=== PATIENT | male | born 1945 | race Caucasian/White ===

== ENCOUNTER 2023-02-16 17:51 | Inpatient (IN) | payer MEDICARE, BC ==
[2023-02-16] MEDS ORDERED: VERAPAMIL 2.5 MG/ML 2 ML AMP ONE (18:20)
[2023-02-16] MEDS ORDERED: LIDOCAINE 1% INJ 10MG/ML (20 ML MDV) ONE (18:20)
[2023-02-16] MEDS ORDERED: SODIUM CHLORIDE 0.9% 1,000 ML IV ONE (18:40)
[2023-02-16] MEDS ORDERED: LIDOCAINE 1% INJ 10MG/ML (20 ML MDV) SQ ONE (18:41)
[2023-02-16] MEDS ORDERED: fentaNYL (PF) 50 MCG/ML 2 ML AMP IVP ONE (18:41)
[2023-02-16] MEDS ORDERED: HEPARIN SODIUM 1,000 UN/ML (10ML VL) ONE (18:41)
[2023-02-16] MEDS ORDERED: fentaNYL (PF) 50 MCG/ML 2 ML AMP ONE (18:41)
[2023-02-16] MEDS ORDERED: VERAPAMIL SYRINGE (5 MG/10 ML) INTRAARTER ONE (18:42)
[2023-02-16] MEDS: HEPARIN SODIUM 1,000 UN/ML (10ML VL) IV ONE ×2 (18:44→18:45)
[2023-02-16] MEDS ORDERED: TICAGRELOR 90 MG TAB PO ONE (18:45)
[2023-02-16] MEDS ORDERED: TICAGRELOR 90 MG TAB ONE (18:50)
[2023-02-16] MEDS ORDERED: IOPAMIDOL-370 100ML BTL INJ ONE ×2 (19:07→20:30)
[2023-02-16] MEDS ORDERED: MAG HYDROX/AL HYDROX/SIMETH 30 ML CUP PO PRN (20:26)
[2023-02-16] MEDS ORDERED: ZOLPIDEM 5 MG TAB PO PRN (20:26)
[2023-02-16] MEDS ORDERED: RX INFO: IV CONTRAST WAS GIVEN 1 EACH MISC MISCELLANE PRN (20:26)
[2023-02-16] MEDS ORDERED: NITROGLYCERIN SL TABS 0.4 MG TAB SUBLINGUAL PRN (20:26)
[2023-02-16] MEDS ORDERED: ATROPINE SULFATE 0.1 MG/ML 10ML SYRINGE IV PRN (20:26)
[2023-02-16] MEDS ORDERED: SODIUM CHLORIDE 0.9% 1,000 ML in EMPTY BAG 1 BAG IV SCH (20:30)
--- NOTE | 2023-02-16 20:41 | P.CARDCATH ---
Date of Procedure: 02/16/23 Description of Procedure: Cardiac Catheterization: The patient is a 77-year-old male with a known history of hypertension who presented to [facility] with 10 days of exertional chest discomfort worse today. He was evaluated by Dr. Chandler and was found to have elevation of his troponin and mild ST segment depression anteriorly. Recommendations were made regarding cardiac catheterization, the risks and the complications were discussed with the patient who is in full understanding and agreement. Procedure Description: Patient was brought to lab rep in fasting semi-sedated state after receiving Fentanyl and Benadryl achieiving moderate conscious sedated state. Using Xylocaine Anesthesia and modified Seldinger technique, a 6-Trinidadian sheath was introduced in the right radial artery . Subsequently, selective coronary angiography was performed using a 5-Trinidadian 3.5 bend Shabbir catheter. Multiple views of the coronary artery including hemiaxial views were obtained. The 5-Trinidadian pigtail catheter was used to cross the aortic valve and LVEDP was calculated. PCI: After removing the catheters a 6-Trinidadian EBU 3.75 guiding catheter was introduced and the system and the left main was cannulated. Subsequently a 0.014 BMW J- wire was positioned in the distal LAD. Attempts to advance a 0.014 BMW J-wire into that branch was unsuccessful, that wire was removed and attempt to advanced a whisper J-wire was unsuccessful as well. At that time a 1.5 x 8 mm mini Treck balloon was advanced and inflated distal to the bifurcation. Subsequently the 0.014 whisper J-wire was advanced into the diagonal branch and exchanged through a fine cross microcatheter to a 0.014 BMW J-wire. Subsequently a 2.5 x 12 mm T mery balloon was advanced and 2 inflations at the ostium of the diagonal branch were performed at 8 ivis. After removing the balloon a [employer] [place] eye IVUS was advanced into the LAD and images were obtained. Subsequently a 3.0 x 23 mm Xience rosalba point was advanced and deployed to 16 ivis. After removing the catheter the diagonal wire was withdrawn and readvanced through the stent into the diagonal branch. Repeat IVUS imaging was performed. Subsequently a 3.0 x 20 mm NC Treck balloon was advanced and inflation in the distal segment of the stent was done at 12 ivis and a 4.0 by 8 mm NC Teck in inflations in the proximal segment was done at 10 ivis. Subsequently a 2.75 x 12 mm NC Treck balloon was advanced into the diagonal branch and 2 inflations at 10 ivis at the ostium where done. After removing the balloon repeat IVUS was performed. After removing the catheter the 4.0 x 8 mm NC balloon was readvanced and 2 inflations proximally were performed. Subsequently the wires were removed, images were obtained and revealed stable successful stenting. Following that, catheter and sheath were removed. Hemostasis was obtained with deployment of vascular band . There was no immediate complication. Patient was returned to room in stable condition. Of note, the patient received a total of 5000 units of intravenous heparin as well as intra-arterial verapamil. He received an oral loading dose of Brilinta. He had EKG changes with the inflations but no chest discomfort. His ACT was followed. Findings: Left main: This is a large size vessel, bifurcating into LAD and left circumfle x, left main has 10% plaque LAD: This is a large size vessel, giving rise to 2 diagonal branch. After the first septal smash hand is 99% stenosis involving the takeoff of the second diagonal branch. Cloud 1,1.1., The rest of the vessel has no high-grade stenosis Left circumflex: This is a nondominant vessel, large in caliber, giving rise to 2 obtuse marginal branch, left circumflex has mild intimal disease of 10-20% RCA: This is a large dominant vessel bifurcating distally to PDA and LV. The right coronary artery proximally has 20% plaque, the rest of the vessel has no high-grade stenosis Left Ventriculogram: Not performed Hemodynamics: There was no gradient across the aortic valve, LVEDP was 15-20 mmHg Conclusion: 1. Severe stenosis involving the mid LAD at the takeoff of the second diagonal branch 2. Mild disease in the left circumflex, RCA and left main 3. Right dominance 4. Successful stenting of the mid LAD with reduction of stenosis from 99% to less than 5% with balloon angioplasty of the diagonal branch with KARSTEN-3 flow with IVUS imaging Recommendations: The patient will continue on aspirin and Brilinta without any interruption for one year in addition to aggressive coronary risks modifications, attempting to maintain LDL below 70 mg/dL.. The findings and the recommendations were discussed with the patient and the family and they were in full understanding a nd agreement. Duration of sedation is 92 minutes.
[2023-02-16 20:46] LABS: Glucose,Whole Blood 110 mg/dL (70-110)
[2023-02-16] MEDS ORDERED: lisinopriL 5 MG TAB PO SCH (21:00)
[2023-02-16] MEDS: ATORVASTATIN 80 MG TAB PO SCH (21:18)
[2023-02-16] MEDS: METOPROLOL TARTRATE 25 MG TAB PO SCH (21:18)
[2023-02-16] MEDS: TICAGRELOR 90 MG TAB PO SCH (21:18)
[2023-02-17] MEDS ORDERED: ACETAMINOPHEN TAB 325 MG TAB PO PRN (02:08)
[2023-02-17 06:25] LABS: African American GFR (CKD) >90 (>60 ml/min/1.73 sqM); Anion Gap 8 mmol/L; Blood Urea Nitrogen 20 mg/dL (9-20); Carbon Dioxide 25 mmol/L (22-30); Chloride 106 mmol/L (98-107); Glucose 110 mg/dL (74-99); Non-African American GFR(CKD) 86 (>60 ml/min/1.73 sqM); Potassium 4.2 mmol/L (3.5-5.1); Sodium 139 mmol/L (137-145)
[2023-02-17] MEDS ORDERED: CLOPIDOGREL 75 MG TAB PO SCH (09:00)
[2023-02-17] MEDS: ASPIRIN 81 MG PO SCH (09:48)
[2023-02-17] MEDS: METOPROLOL TARTRATE 25 MG TAB PO SCH ×2 (09:49→21:28)
[2023-02-17] MEDS: TICAGRELOR 90 MG TAB PO SCH ×2 (09:49→21:28)
[2023-02-17] MEDS: lisinopriL 10 MG TAB PO SCH ×2 (09:50→21:28)
[2023-02-17 11:48] VITALS: BMI 26.3
--- NOTE | 2023-02-17 12:21 | P.PN ---
Subjective Progress Note Date: 02/17/23 The patient is a 77-year-old male who presented to the hospital with acute onset of chest discomfort. He was ruled in for an ST elevated myocardial infarction and underwent coronary angiogram with stenting of the LAD and balloon angioplasty of the second diagonal branch with Dr. Guerrero. Patient states he did well overnight. He denies any recurrence of his chest discomfort. No difficulty breathing and he slept well. Patient has yet to ambulate out of the bed. GENERAL: Well-appearing, well-nourished and in no acute distress. NECK: Supple without JVD or thyromegaly. LUNGS: Breath sounds clear to auscultation bilaterally. Respiration equal and unlabored. No wheezes, rales or rhonchi. HEART: Regular rate and rhythm without murmurs, rubs or gallops. S1 and S2 heard. EXTREMITIES: Normal range of motion, no edema. No clubbing or cyanosis. Peripheral pulses intact and strong. Right radial site has +2 pulse. [address] band in place TELEMETRY: Sinus rhythm overnight LABS: Sodium 139, potassium 4.2, BUN 20, creatinine 0.83 IMPRESSION: ST elevated myocardial infarction, anterior wall Multivessel coronary artery disease with stenting of the LAD and balloon angioplasty of the second diagonal branch Hypertension, previously untreated PLAN: Dual antiplatelet therapy with no interruption for at least 1 year Check fasting lipid profile Echocardiogram to assess LV function Further recommendations to be based on clinical course I am dictating on behalf of Dr Theodroe Chandler's history/physical and a ssessment/plan. Objective - Vital Signs Vital signs: Vital Signs Temp 98.3 F 02/17/23 08:15 Pulse 60 02/17/23 11:15 Resp 15 02/17/23 11:15 BP 146/83 02/17/23 11:15 Pulse Ox 95 02/17/23 11:15 FiO2 Intake & Output 02/16/23 02/17/23 02/17/23 18:59 06:59 18:59 Intake Total 150 252 450 Output Total 1525 0 Balance 150 -1273 450 Weight 84 kg 83.2 kg 83.2 kg Intake: IV 150 Intake, IV Titration 252 Amount Sodium Chloride 0.9% 1, 252 000 ml In Empty Bag 1 bag @ 1 ML/KG/HR 84 mls/hr IV .[id number] [facility] Rx#: [id number] Oral 450 Output: Urine 1525 0 Other: # Voids 0 1 # Bowel Movements 1 - Labs CBC & Chem 7: 02/17/23 05:51 Labs: Abnormal Lab Results - Last 24 Hours (Table) 02/17/23 Range/Units 05:51 Glucose 110 H (74-99) mg/dL
--- NOTE | 2023-02-17 13:58 | CA ---
Transthoracic Echo Report Name: Da Hernandez Age: 77 Gender: M : 1945 Exam Date: 02/17/2023 10:15 Exam Location: [facility] Ht (in): 70 Wt (lb): 183 Ordering Physician: Chi Guerrero MD ([id number]) Attending/Referring Phys: Cloth Roll Winder Robinson Soto Procedure CPT: Indications: [place] Cardiac Hx: Technical Quality: Fair Contrast 1: Total Dose (mL): Contrast 2: Total Dose (mL): MEASUREMENTS (Male / Female) Normal Values 2D ECHO LV Diastolic Diameter PLAX 4.8 cm 4.2 - 5.9 / 3.9 - 5.3 cm LV Systolic Diameter PLAX 3.5 cm IVS Diastolic Thickness 1.0 cm 0.6 - 1.0 / 0.6 - 0.9 cm LVPW Diastolic Thickness 1.1 cm 0.6 - 1.0 / 0.6 - 0.9 cm LV Relative Wall Thickness 0.4 RV Internal Dim ED PLAX 2.9 cm LVOT Diameter 2.0 cm Aortic Root Diameter 3.4 cm LA Systolic Diameter LX 2.5 cm 3.0 - 4.0 / 2.7 - 3.8 cm LV Diastolic Volume MOD BP 53.0 cm??? 67 - 155 / 56 - 104 cm??? LV Systolic Volume MOD BP 22.1 cm??? 22 - 58 / 19 - 49 cm??? LV Ejection Fraction MOD BP 58.3 % >= 55 % LV Cardiac Index MOD BP 1093.3 cm???/min???m??? LV Diastolic Volume MOD 4C 46.9 cm??? LV Systolic Volume MOD 4C 23.3 cm??? LV Ejection Fraction MOD 4C 50.5 % LV Cardiac Index MOD 4C 837.1 cm???/min???m??? LV Diastolic Length 4C 7.4 cm LV Systolic Length 4C 6.5 cm LV Diastolic Volume MOD 2C 54.0 cm??? LV Systolic Volume MOD 2C 18.8 cm??? LV Ejection Fraction MOD 2C 65.2 % LV Cardiac Index MOD 2C 1245.4 cm???/min???m??? LV Diastolic Length 2C 6.6 cm LV Systolic Length 2C 5.7 cm LA Volume 48.0 cm??? 18 - 58 / 22 - 52 cm??? LA Volume Index 23.6 cm???/m??? 16 - 28 cm???/m??? Ascending Aorta Diameter 2.9 cm DOPPLER AV Peak Velocity 132.7 cm/s AV Peak Gradient 7.0 mmHg LVOT Peak Velocity 86.2 cm/s LVOT Peak Gradient 3.0 mmHg LVOT Velocity Time Integral 18.2 cm LVOT Stroke Volume 59.6 cm??? LVOT Stroke Volume Index 29.6 ml/m??? LVOT Cardiac Index 2106.1 cm???/min???m??? AV Area Cont Eq pk 2.1 cm??? MV Peak Velocity 113.4 cm/s MV Peak Gradient 5.1 mmHg MV Mean Velocity 54.2 cm/s MV Mean Gradient 1.5 mmHg MV Velocity Time Integral 31.3 cm MR Peak Velocity 236.5 cm/s MR Peak Gradient 22.4 mmHg Mitral E Point Velocity 63.1 cm/s Mitral A Point Velocity 88.4 cm/s Mitral E to A Ratio 0.7 MV Deceleration Time 220.5 ms MV E' Velocity 5.4 cm/s Mitral E to MV E' Ratio 11.6 TR Peak Velocity 260.8 cm/s TR Peak Gradient 27.2 mmHg Right Ventricular Systolic Press 32.2 mmHg FINDINGS Left Ventricle Normal LV size and wall thickness. Left ventricular ejection fraction is estimated at 55 %. Right Ventricle Normal right ventricular size. RVSP= 32mmHg. Right Atrium Normal right atrial size. Left Atrium Normal left atrial size. Mitral Valve Structurally normal mitral valve. Mild MR. Aortic Valve Trileaflet aortic valve. No aortic valve stenosis or regurgitation. Tricuspid Valve Structurally normal tricuspid valve. Mild TR. Pulmonic Valve Pulmonic valve not well visualized. No pulmonic regurgitation. Pericardium Not well visualized. Aorta Normal size aortic root and proximal ascending aorta. CONCLUSIONS Systolic function but preserved LV systolic function Subtle, mild anterior apical/anteroseptal hypokinesis Previewed by: Dr. Theodore Chandler MD (Electronically Signed) Final Date: 17 February 2023 13:57
[2023-02-17 14:07] LABS: Glucose,Whole Blood 140 mg/dL (70-110)
[2023-02-17] MEDS: ONDANSETRON 4 MG/2 ML VIAL IVP SCH ×3 (15:39→21:38)
[2023-02-17] MEDS ORDERED: LABETALOL 5 MG/ML VIAL MDV IVP STA (16:50)
[2023-02-17] MEDS ORDERED: TICAGRELOR 90 MG TAB PO STA (17:02)
[2023-02-17] MEDS ORDERED: LOSARTAN 50 MG TAB PO STA (19:11)
[2023-02-17] MEDS ORDERED: HEPARIN SODIUM 1,000 UN/ML (10ML VL) IV PRN ×2 (20:39→20:47)
[2023-02-17] MEDS ORDERED: HEPARIN SOD,PORK IN 0.45% NACL 25,000 UNIT in 0.45% NACL 1 250ML.BAG IV SCH (20:45)
[2023-02-17 21:25] LABS: Basophils % (A) 0 %; Eosinophils % (A) 0 %; HGB 12.8 gm/dL (13.0-17.5); Lymphocytes # (A) 0.8 k/uL (1.0-4.8); Lymphocytes % (A) 8 %; MCH 27.7 pg (25.0-35.0); MCHC 32.8 g/dL (31.0-37.0); MCV 84.6 fL (80.0-100.0); Mean Platelet Volume 9.7; Monocytes # (A) 0.3 k/uL (0-1.0); Monocytes % (A) 3 %; Neutrophils # (A) 9.6 k/uL (1.3-7.7); Neutrophils % (A) 88 %; Platelet Count 147 k/uL (150-450); RBC 4.62 m/uL (4.30-5.90); RDW 14.1 % (11.5-15.5); WBC 10.9 k/uL (3.8-10.6)
[2023-02-17] MEDS: ATORVASTATIN 80 MG TAB PO SCH (21:28)
[2023-02-17] MEDS: HEPARIN SOD,PORK IN 0.45% NACL 25,000 UNIT in 0.45% NACL 1 250ML.BAG IV SCH (21:32)
[2023-02-17 22:56] LABS: Chol/HDL Ratio 4.77 Ratio; LDL Cholesterol,Calculated 124.8 mg/dL (0.0-131.0)
[2023-02-17 22:56] LABS: Chol/HDL Ratio 4.84 Ratio; LDL Cholesterol,Calculated 126.9 mg/dL (0.0-131.0); VLDL Calculation 18.34 mg/dL (5.00-40.00)
[2023-02-18] MEDS: LABETALOL 5 MG/ML VIAL MDV IVP SCH ×4 (00:16→21:36)
[2023-02-18] MEDS: ONDANSETRON 4 MG/2 ML VIAL IVP SCH ×3 (02:50→07:56)
[2023-02-18 03:41] LABS: Basophils % (A) 0 %; Eosinophils # (A) 0.1 k/uL (0-0.7); Eosinophils % (A) 1 %; HCT 38.1 % (39.0-53.0); HGB 12.7 gm/dL (13.0-17.5); Lymphocytes # (A) 1.4 k/uL (1.0-4.8); Lymphocytes % (A) 13 %; MCH 28.4 pg (25.0-35.0); MCHC 33.3 g/dL (31.0-37.0); MCV 85.3 fL (80.0-100.0); Mean Platelet Volume 8.7; Monocytes # (A) 0.6 k/uL (0-1.0); Monocytes % (A) 5 %; Neutrophils # (A) 8.4 k/uL (1.3-7.7); Neutrophils % (A) 80 %; Platelet Count 152 k/uL (150-450); RBC 4.46 m/uL (4.30-5.90); RDW 14.1 % (11.5-15.5); WBC 10.6 k/uL (3.8-10.6)
[2023-02-18] MEDS: TICAGRELOR 90 MG TAB PO SCH ×2 (07:55→20:11)
[2023-02-18] MEDS: lisinopriL 10 MG TAB PO SCH ×2 (07:55→20:11)
[2023-02-18] MEDS: ASPIRIN 81 MG PO SCH (07:56)
[2023-02-18] MEDS: METOPROLOL TARTRATE 25 MG TAB PO SCH ×2 (07:56→20:11)
[2023-02-18] MEDS ORDERED: ASPIRIN 300 MG SUPP RECTAL ONE (09:00)
[2023-02-18] MEDS ORDERED: ONDANSETRON 4 MG/2 ML VIAL IVP PRN (09:33)
--- NOTE | 2023-02-18 11:45 | P.HPIM ---
History of Present Illness H&P Date: 02/17/23 Chief Complaint: Exertional chest pain 77-year-old male with a known history of hypertension, hyperlipidemia, transferred from outside facility that he presented presented with 10 day history of exertional chest discomfort; according to patient chest discomfort continued to worsen and was worse on day of admission. Patient was evaluated by cardiology at [facility] and was found to have elevation of his troponin and mild ST segment depression anteriorly. Recommendations were made regarding cardiac catheterization, the risks and the complications were discussed with the patient who is in full understanding and agreement. Patient was transferred to our facility for further evaluation Upon arrival patient was taken to the [facility]; cardiac catheterization revealed severe stenosis of the mid LAD at the takeoff of the second diagonal branch, mild disease and left circumflex, RCA and left main -- Patient underwent successful stenting of the mid LAD with reduction of sten osis from 99% to less than 5% with balloon angioplasty of the diagonal branch with KARSTEN-3 flow with IVUS imaging -- Patient was transferred to ICU for close monitoring Review of Systems REVIEW OF SYSTEMS: CONSTITUTIONAL: No fever, no malaise, no fatigue. HEENT: No recent visual problems or hearing problems. Denied any sore throat. CARDIOVASCULAR: No chest pain, orthopnea, PND, no palpitations, no syncope. PULMONARY: No shortness of breath, no cough, no hemoptysis. GASTROINTESTINAL: No diarrhea, no nausea, no vomiting, no abdominal pain. NEUROLOGICAL: No headaches, no weakness, no numbness. HEMATOLOGICAL: Denies any bleeding or petechiae. GENITOURINARY: Denies any burning micturition, frequency, or urgency. MUSCULOSKELETAL/RHEUMATOLOGICAL: Denies any joint pain, swelling, or any muscle pain. ENDOCRINE: Denies any polyuria or polydipsia. The rest of the 14-point review of systems is negative. Past Medical History Past Medical History: No Reported History History of Any Multi-Drug Resistant Organisms: None Reported Past Surgical History: Hernia Repair Smoking Status: Never smoker Medications and Allergies Home Medications Medication Instructions Recorded Confirmed Type Albuterol Inhaler [Ventolin Hfa 2 puff INHALATION RT-QID PRN 02/16/23 02/16/23 History Inhaler] Bimatoprost [Lumigan 0.01% Ophth 1 drop BOTH EYES HS 02/16/23 02/16/23 History Soln] Dorzolamide-Timol 2.23%/0.68% 1 drop BOTH EYES BID 02/16/23 02/16/23 History [Cosopt] metroNIDAZOLE 1% GEL [Metrogel 1%] 1 applic TOPICAL DAILY 02/16/23 02/16/23 History Atorvastatin [Lipitor] 80 mg PO DAILY #90 tab 02/17/23 Rx Allergies Allergy/AdvReac Type Severity Reaction Status Date / Time Penicillins AdvReac Severe Dizzy Verified 02/16/23 21:10 aspirin [From Percodan] AdvReac Nausea Verified 02/16/23 21:10 oxycodone [From Percodan] AdvReac Nausea Verified 02/16/23 21:10 Physical Exam Vitals: Vital Signs Temp Pulse Pulse Pulse Resp BP BP 02/18/23 09:07 02/18/23 07:54 98.1 F 60 17 141/76 02/18/23 04:00 97.9 F 61 16 146/67 02/18/23 00:21 142/73 02/17/23 23:31 98 F 76 18 143/69 02/17/23 20:13 97.8 F 76 18 144/77 02/17/23 17:15 97.6 F 59 L 16 165/70 02/17/23 14:20 80 208/104 02/17/23 13:57 98.7 F 76 16 174/90 02/17/23 12:15 98.2 F 73 23 137/81 02/17/23 11:15 60 15 146/83 Pulse Ox 02/18/23 09:07 96 02/18/23 07:54 97 02/18/23 04:00 97 02/18/23 00:21 02/17/23 23:31 98 02/17/23 20:13 97 02/17/23 17:15 98 02/17/23 14:20 02/17/23 13:57 98 02/17/23 12:15 95 02/17/23 11:15 95 Intake and Output 02/17/23 02/18/23 02/18/23 22:59 06:59 14:59 Output Total 200 Balance -200 Output: Urine 200 Other: Voiding Method Urinal Urinal Urinal - Constitutional: average body habitus, cooperative, no acute distress - EENT: anicteric sclerae, EOMI, PERRLA, normal appearance - Neck: normal ROM. Absent: lymphadenopathy, rigidity, thyromegaly or carotid bruit present - Respiratory: CTA, negative: rales, rhonchi, wheezing - Cardiovascular; regular rhythm with normal S1 and S2 - Gastrointestinal: normal bowel sounds, soft. Absent: distended, organomegaly, tenderness - Genitourinary: deferred - Integumentary: no jaundice, rash or ulcer - Neurologic: CNII-XII intact. Absent: focal deficits - Musculoskeletal: gait normal, strength equal bilaterally - Psychiatric: A&O x's 3, appropriate affect, intact judgment & insight Results CBC & Chem 7: 02/18/23 03:07 02/17/23 05:51 Labs: Abnormal Lab Results - Last 24 Hours (Table) 02/17/23 02/17/23 02/17/23 Range/Units 05:51 12:57 14:04 WBC (3.8-10.6) k/uL Hgb (13.0-17.5) gm/dL Hct (39.0-53.0) % Plt Count (150-450) k/uL Neutrophils # (1.3-7.7) k/uL Lymphocytes # (1.0-4.8) k/uL APTT (22.0-30.0) sec POC Glucose (mg/dL) 140 H (70-110) mg/dL HDL Cholesterol 37.80 L 38.60 L (40.00-60.00) mg/dL 02/17/23 02/18/23 02/18/23 Range/Units 21:08 03:07 03:07 WBC 10.9 H (3.8-10.6) k/uL Hgb 12.8 L 12.7 L (13.0-17.5) gm/dL Hct 38.1 L (39.0-53.0) % Plt Count 147 L (150-450) k/uL Neutrophils # 9.6 H 8.4 H (1.3-7.7) k/uL Lymphocytes # 0.8 L (1.0-4.8) k/uL APTT 47.2 H (22.0-30.0) sec POC Glucose (mg/dL) (70-110) mg/dL HDL Cholesterol (40.00-60.00) mg/dL Thrombosis Risk Factor Assmnt - Choose All That Apply Each Factor Represents 1 point: Acute DC Each Risk Factor Represents 3 Points: Age 75 years or older Thrombosis Risk Factor Assessment Total Risk Factor Score: 4 Thrombosis Risk Factor Assessment Level: Moderate Risk Assessment and Plan Assessment: 1. Non-STEMI - Patient is status post cardiac catheterization which reveals severe stenosis of mid LAD at the takeoff the second diagonal branch, mild disease and left circumflex, RCA and left main - Patient underwent successful stenting of the mid LAD with reduction of stenosis from 99% to less than 5% with angioplasty of the diagonal branch with KARSTEN-3 flow with IVUS imaging - Cardiology recommending to continue with aspirin and Mylanta without any in terruption for one year; aggressive modification of the risk factors; LAD below 70 mg/dl -- Patient is currently on aspirin, Brilinta, statins, beta blockers, lisinopril and IV heparin infusion 2. Hypertension; lisinopril 10 mg by mouth twice a day, metoprolol 25 mg twice a day 3. Hyperlipidemia; Lipitor 80 mg by mouth daily at bedtime 4. Mild leukocytosis; likely reactive; no signs of infection; we will monitor CBC and make further recommendations if white blood count continues to trend up DVT prophylaxis; IV heparin CODE STATUS; full code
--- NOTE | 2023-02-18 11:48 | P.PN ---
Subjective Patient was very nauseous yesterday. He was throwing up repetitively and I treated with Zofran Unfortunately he threw up right after he got his pills so I was unsure whether he was able to keep aspirin and Brilinta down Therefore I treated her with IV Zofran And I started him on IV heparin since I was not sure if he would keep his pills down including aspirin and Brilinta I spoke to the past she said that his belly was soft on examination In addition his blood pressure was high and therefore I treated with IV labetalol 20 mg initially and then 10 mg 3 times a day in place of his other medications This morning he is lying comfortably in bed His nausea has gone His abdomen was soft, nontender Labs Hemoglobin 12.7 line normal white count Normal platelet count Electrolytes normal Normal TSH of 0.7 LDL 127 HDL 37 Normal triglycerides Hemoglobin A1c 5.8 Impression Non-Q wave myocardial infarction with subtle ST depressions in V4-V6 with ongoing intermittent discomfort 99% LAD stenosis of the first septal branch Mild disease in the left circumflex Mild disease in the RCA LVEDP 15-20 mmHg 2-D echo shows a very subtle anterior apical hypokinesis but overall LV function is preserved Very nauseous yesterday and was not able to keep any of his medications down but no nausea today and able to keep his medications Plan Continue IV heparin today Once we're sure that he is able to keep his medications down, we should stop it tomorrow Continue other cardiac medications Objective - Vital Signs Vital signs: Vital Signs Temp 98.1 F 02/18/23 07:54 Pulse 60 02/18/23 07:54 Resp 17 02/18/23 07:54 BP 141/76 02/18/23 07:54 Pulse Ox 96 02/18/23 09:07 FiO2 Intake & Output 02/17/23 02/18/23 02/18/23 18:59 06:59 18:59 Intake Total 450 Output Total 0 200 Balance 450 -200 Weight 83.2 kg Intake: Oral 450 Output: Urine 0 200 Other: Voiding Method Toilet Urinal Urinal # Voids 1 # Bowel Movements 1 - Labs CBC & Chem 7: 02/18/23 03:07 02/17/23 05:51 Labs: Abnormal Lab Results - Last 24 Hours (Table) 02/17/23 02/17/23 02/17/23 Range/Units 05:51 12:57 14:04 WBC (3.8-10.6) k/uL Hgb (13.0-17.5) gm/dL Hct (39.0-53.0) % Plt Count (150-450) k/uL Neutrophils # (1.3-7.7) k/uL Lymphocytes # (1.0-4.8) k/uL APTT (22.0-30.0) sec POC Glucose (mg/dL) 140 H (70-110) mg/dL HDL Cholesterol 37.80 L 38.60 L (40.00-60.00) mg/dL 02/17/23 02/18/23 02/18/23 Range/Units 21:08 03:07 03:07 WBC 10.9 H (3.8-10.6) k/uL Hgb 12.8 L 12.7 L (13.0-17.5) gm/dL Hct 38.1 L (39.0-53.0) % Plt Count 147 L (150-450) k/uL Neutrophils # 9.6 H 8.4 H (1.3-7.7) k/uL Lymphocytes # 0.8 L (1.0-4.8) k/uL APTT 47.2 H (22.0-30.0) sec POC Glucose (mg/dL) (70-110) mg/dL HDL Cholesterol (40.00-60.00) mg/dL
--- NOTE | 2023-02-18 15:04 | P.PN ---
Subjective Progress Note Date: 02/18/23 77-year-old male with a known history of hypertension, hyperlipidemia, transferred from outside facility that he presented presented with 10 day history of exertional chest discomfort; according to patient chest discomfort continued to worsen and was worse on day of admission. Patient was evaluated by cardiology at [facility] and was found to have elevation of his troponin and mild ST segment depression anteriorly. Recommendations were made regarding cardiac catheterization, the risks and the complications were discussed with the patient who is in full understanding and agreement. Patient was transferred to our facility for further evaluation Upon arrival patient was taken to the [employer]; cardiac catheterization revealed severe stenosis of the mid LAD at the takeoff of the second diagonal branch, mild disease and left circumflex, RCA and left main -- Patient underwent successful stenting of the mid LAD with reduction of stenosis from 99% to less than 5% with balloon angioplasty of the diagonal branch with KARSTEN-3 flow with IVUS imaging -- Patient has been transferred out of ICU -- Evaluated by cardiology and recommended to continue with our current management at this time; patient is vomiting and unable to have any oral medications -- Plan for possible discharge in next 24 hours if able to tolerate oral medications and nausea and vomiting resolves Objective - Vital Signs Vital signs: Vital Signs Temp 98.1 F 02/18/23 07:54 Pulse 60 02/18/23 07:54 Resp 17 02/18/23 07:54 BP 141/76 02/18/23 07:54 Pulse Ox 96 02/18/23 09:07 FiO2 Intake & Output 02/17/23 02/18/23 02/18/23 18:59 06:59 18:59 Intake Total 450 Output Total 0 200 Balance 450 -200 Weight 83.2 kg Intake: Oral 450 Output: Urine 0 200 Other: Voiding Method Toilet Urinal Urinal # Voids 1 # Bowel Movements 1 - Exam - Constitutional: average body habitus, cooperative, no acute distress - EENT: anicteric sclerae, EOMI, PERRLA, normal appearance - Neck: normal ROM. Absent: lymphadenopathy, rigidity, thyromegaly or carotid bruit present - Respiratory: CTA, negative: rales, rhonchi, wheezing - Cardiovascular; regular rhythm with normal S1 and S2 - Gastrointestinal: normal bowel sounds, soft. Absent: distended, organomegaly, tenderness - Genitourinary: deferred - Integumentary: no jaundice, rash or ulcer - Neurologic: CNII-XII intact. Absent: focal deficits - Musculoskeletal: gait normal, strength equal bilaterally - Psychiatric: A&O x's 3, appropriate affect, intact judgment & insight - Labs CBC & Chem 7: 02/18/23 03:07 02/17/23 05:51 Labs: Abnormal Lab Results - Last 24 Hours (Table) 02/17/23 02/17/23 02/17/23 Range/Units 05:51 12:57 14:04 WBC (3.8-10.6) k/uL Hgb (13.0-17.5) gm/dL Hct (39.0-53.0) % Plt Count (150-450) k/uL Neutrophils # (1.3-7.7) k/uL Lymphocytes # (1.0-4.8) k/uL APTT (22.0-30.0) sec POC Glucose (mg/dL) 140 H (70-110) mg/dL HDL Cholesterol 37.80 L 38.60 L (40.00-60.00) mg/dL 02/17/23 02/18/23 02/18/23 Range/Units 21:08 03:07 03:07 WBC 10.9 H (3.8-10.6) k/uL Hgb 12.8 L 12.7 L (13.0-17.5) gm/dL Hct 38.1 L (39.0-53.0) % Plt Count 147 L (150-450) k/uL Neutrophils # 9.6 H 8.4 H (1.3-7.7) k/uL Lymphocytes # 0.8 L (1.0-4.8) k/uL APTT 47.2 H (22.0-30.0) sec POC Glucose (mg/dL) (70-110) mg/dL HDL Cholesterol (40.00-60.00) mg/dL Assessment and Plan Assessment: 1. Non-STEMI - Patient is status post cardiac catheterization which reveals severe stenosis of mid LAD at the takeoff the second diagonal branch, mild disease and left circumflex, RCA and left main - Patient underwent successful stenting of the mid LAD with reduction of haroon nosis from 99% to less than 5% with angioplasty of the diagonal branch with KARSTEN-3 flow with IVUS imaging - Cardiology recommending to continue with aspirin and Mylanta without any interruption for one year; aggressive modification of the risk factors; LAD below 70 mg/dl -- Patient is currently on aspirin, Brilinta, statins, beta blockers, lisinopril and IV heparin infusion 2. Hypertension; lisinopril 10 mg by mouth twice a day, metoprolol 25 mg twice a day 3. Hyperlipidemia; Lipitor 80 mg by mouth daily at bedtime 4. Mild leukocytosis; likely reactive; no signs of infection; we will monitor CBC and make further recommendations if white blood count continues to trend up DVT prophylaxis; IV heparin CODE STATUS; full code
[2023-02-18] MEDS: ATORVASTATIN 80 MG TAB PO SCH (20:11)
[2023-02-18] MEDS: HEPARIN SOD,PORK IN 0.45% NACL 25,000 UNIT in 0.45% NACL 1 250ML.BAG IV SCH (21:36)
[2023-02-18 23:32] VITALS: TEMP 98
[2023-02-19 03:46] LABS: Basophils # (A) 0.1 k/uL (0-0.2); Basophils % (A) 1 %; Eosinophils # (A) 0.4 k/uL (0-0.7); Eosinophils % (A) 5 %; HCT 37.9 % (39.0-53.0); HGB 12.6 gm/dL (13.0-17.5); Lymphocytes # (A) 1.9 k/uL (1.0-4.8); Lymphocytes % (A) 21 %; MCH 28.2 pg (25.0-35.0); MCHC 33.1 g/dL (31.0-37.0); Mean Platelet Volume 8.7; Monocytes # (A) 0.6 k/uL (0-1.0); Monocytes % (A) 7 %; Neutrophils # (A) 5.8 k/uL (1.3-7.7); Neutrophils % (A) 66 %; Platelet Count 146 k/uL (150-450); RBC 4.46 m/uL (4.30-5.90); RDW 14.1 % (11.5-15.5); WBC 8.9 k/uL (3.8-10.6)
[2023-02-19 04:51] LABS: African American GFR (CKD) 79 (>60 ml/min/1.73 sqM); Anion Gap 8 mmol/L; Blood Urea Nitrogen 25 mg/dL (9-20); Calcium 9.3 mg/dL (8.4-10.2); Carbon Dioxide 26 mmol/L (22-30); Chloride 105 mmol/L (98-107); Glucose 95 mg/dL (74-99); Non-African American GFR(CKD) 68 (>60 ml/min/1.73 sqM); Potassium 3.4 mmol/L (3.5-5.1); Sodium 139 mmol/L (137-145)
--- NOTE | 2023-02-19 08:17 | P.PN ---
Subjective Progress Note Date: 02/19/23 PROGRESS NOTE The patient is a 77-year-old male with a history of hyperlipidemia who presented with non-STEMI. Underwent cardiac catheterization and was found to have severe obstructive disease involving the LAD at the takeoff of the diagonal branch. He underwent PCI and stenting. He's feeling well, he denies any chest discomfort, dizziness or palpitations. He is ambulating without difficulties. He continues to be in sinus mechanism. Hemodynamically stable. Medications: Aspirin, Lipitor 80 mg daily, Zestril 10 mg twice a day, metoprolol 25 mg twice a day, Brilinta 90 mg twice a day, IV heparin PHYSICAL EXAMINATION: Blood pressure 129/60 heart rate 60 LUNGS: Clear to auscultation HEART: Regular rate and rhythm, S1, S2. No S3. No systolic murmur ABDOMEN: Soft, nontender, no organomegaly EXTREMETIES: No edema LAB: His echocardiogram showed mild mid anteroapical and anteroseptal hypokinesis. Hemoglobin 12.6, potassium 3.4, creatinine 1.06. IMPRESSION: 1. Status post non-STEMI with stenting of the LAD 2. Hyperlipidemia 3. Nausea resolved 4. Preserved systolic function PLAN: 1. Stop IV heparin 2. Increase physical activity 3. If stable probable discharge home today 4. And follow-up as an outpatient with Dr. Chandler Objective - Vital Signs Vital signs: Vital Signs Temp 98 F 02/18/23 23:18 Pulse 66 02/19/23 04:16 Resp 18 02/19/23 04:16 BP 129/67 02/19/23 04:16 Pulse Ox 97 02/19/23 04:16 FiO2 Intake & Output 02/18/23 02/19/23 02/19/23 18:59 06:59 18:59 Intake Total 0 Balance 0 Intake: Oral 0 Other: Voiding Method Urinal - Labs CBC & Chem 7: 02/19/23 03:31 02/19/23 03:31 Labs: Abnormal Lab Results - Last 24 Hours (Table) 02/19/23 02/19/23 02/19/23 Range/Units 03:31 03:31 03:31 Hgb 12.6 L (13.0-17.5) gm/dL Hct 37.9 L (39.0-53.0) % Plt Count 146 L (150-450) k/uL APTT 64.4 H (22.0-30.0) sec Potassium 3.4 L (3.5-5.1) mmol/L BUN 25 H (9-20) mg/dL
[2023-02-19] MEDS: lisinopriL 10 MG TAB PO SCH (08:32)
[2023-02-19] MEDS: ASPIRIN 81 MG PO SCH (08:32)
[2023-02-19] MEDS: TICAGRELOR 90 MG TAB PO SCH (08:32)
[2023-02-19] MEDS ORDERED: METOPROLOL TARTRATE 50 MG TAB PO SCH (09:00)
[2023-02-19 09:53] VITALS: BP 156/76; PULSE 74; RESP 17
[2023-02-19] MEDS ORDERED: POTASSIUM CHLORIDE ER 20 MEQ TAB.ER PO STA (10:28)
--- NOTE | 2023-02-19 21:59 | P.DS ---
Providers Date of admission: 02/16/23 18:34 Attending physician: Owen Martins Consults: 02/16/23 20:26 Consult Physician Routine Consulting Provider: [facility] Consult Reason/Comments: Post Interventional Patient Do you want consulting provider notified?: Already Contacted Primary care physician: Stated None Hospital Course: Diagnoses: 1. Non-STEMI, status post PCI to LAD 2. Hypertension; 3. Hyperlipidemia; 4. Mild leukocytosis; likely reactive; Hospital course: 77-year-old male with a known history of hypertension, hyperlipidemia, transferred from outside facility that he presented presented with 10 day history of exertional chest discomfort; according to patient chest discomfort continued to worsen and was worse on day of admission. Patient evaluated by chief building inspector., cardiac catheterization revealed severe stenosis of the mid LAD at the takeoff of the second diagonal branch, mild disease and left circumflex, RCA and left main, Patient underwent successful stenting of the mid LAD with reduction of stenosis from 99% to less than 5% with balloon angioplasty of the diagonal branch with KARSTEN-3 flow with IVUS imaging Patient showed interval improvement after cardiac cath. Patient with no chest pain or dyspnea. No new Complaint. The importance of attendance to dual antiplatelet therapy is explained for the patient and he agrees Patient was cleared for discharge by chief building inspector. Problems and management plan were discussed with the patient and he verbalized understanding and acceptance Patient was found stable and can be discharged home in guarded prognosis however he needs follow-up as an outpatient. Patient was instructed to follow up with PCP within one week and patient agrees Patient was instructed to follow up with chief building inspector Dr. Bradford in 1 week after discharge and he agrees Physical exam Gen: patient is a AAOx3, no distress CVS: S1-S2, RRR, no murmur Lungs: B/L CTA, no wheezing Abdomen: soft, no distention, no tenderness, positive bowel sounds Extremity: no leg edema or induration Time spent more than 35 minutes Plan - Discharge Summary New Discharge Prescriptions: New Atorvastatin [Lipitor] 80 mg PO DAILY #90 tab Aspirin 81 mg PO DAILY tab Metoprolol Tartrate [Lopressor] 50 mg PO BID #180 tab lisinopriL [Zestril] 10 mg PO BID #180 tab Ticagrelor [Brilinta] 90 mg PO BID #180 tab Nitroglycerin Sl Tabs [Nitrostat] 0.4 mg SUBLINGUAL Q5M PRN #25 tab PRN Reason: Chest Pain Continue Albuterol Inhaler [Ventolin Hfa Inhaler] 2 puff INHALATION RT-QID PRN PRN Reason: Shortness Of Breath metroNIDAZOLE 1% GEL [Metrogel 1%] 1 applic TOPICAL DAILY Dorzolamide-Timol 2.23%/0.68% [Cosopt] 1 drop BOTH EYES BID Bimatoprost [Lumigan 0.01% Ophth Soln] 1 drop BOTH EYES HS Discontinued Lisinopril-Hctz 20-25 mg [Zestoretic 20-25] 1 tab PO DAILY Discharge Medication List Albuterol Inhaler [Ventolin Hfa Inhaler] 2 puff INHALATION RT-QID PRN 02/16/23 [History] Bimatoprost [Lumigan 0.01% Ophth Soln] 1 drop BOTH EYES HS 02/16/23 [History] Dorzolamide-Timol 2.23%/0.68% [Cosopt] 1 drop BOTH EYES BID 02/16/23 [History] metroNIDAZOLE 1% GEL [Metrogel 1%] 1 applic TOPICAL DAILY 02/16/23 [History] Atorvastatin [Lipitor] 80 mg PO DAILY #90 tab 02/17/23 [Rx] Aspirin 81 mg PO DAILY tab 02/19/23 [Rx] Metoprolol Tartrate [Lopressor] 50 mg PO BID #180 tab 02/19/23 [Rx] Nitroglycerin Sl Tabs [Nitrostat] 0.4 mg SUBLINGUAL Q5M PRN #25 tab 02/19/23 [Rx] Ticagrelor [Brilinta] 90 mg PO BID #180 tab 02/19/23 [Rx] lisinopriL [Zestril] 10 mg PO BID #180 tab 02/19/23 [Rx] Follow up Appointment(s)/Referral(s): Theodore Chandler MD [STAFF PHYSICIAN] - 1 Week (Office will call you with follow up appointment ) None,Stated [Primary Care Provider] - 1 Week Patient Instructions/Handouts: Heart Attack (GEN), Heart Catheterization (GEN) Activity/Diet/Wound Care/Special Instructions: heart healthy diet activity is restricted till you see your doctor Discharge Disposition: HOME SELF-CARE
--- NOTE | 2023-02-21 15:43 | CDI ---
Documentation Clarification Form Date: 02/21/2023 03:31:57 PM From: Shauna Adamson Phone: Admit Date: 02/16/2023 06:34:00 PM Patient Name: Da Hernandez Visit Number: [id number] Discharge Date: 02/19/2023 02:27:00 PM ATTENTION: The Clinical Documentation Specialists (CDI) and [facility] Coding Staff appreciate your assistance in clarifying documentation. Please respond to the clarification below the line at the bottom and electronically sign. The CDI & [facility] Coding staff will review the response and follow-up if needed. Please note: Queries are made part of the Legal Health Record. If you have any questions, please contact the author of this message via ITS. Dr. Judd E Sheet Conflicting documentation has been found in the medical record. As attending physician, please provide clarification. STEMI, anterior wall Progress 02/17 STEMI withstentingof the LAD Progress 02/17 Non-STEMI H&P and DC Summary History/Risk Factors: 77yo M, HTN, HLD, [place], CAD Clinical Indicators: Severestenosisinvolving the mid LAD at the takeoff of the second diagonal branch. Mild disease in the LC, RCA and left main; Rt dominance. Treatment: Successfulstentingof the mid LAD withreductionofstenosisfrom 99% to less than 5% withballoonangioplastyof the diagonal branch with KARSTEN-3 flow with IVUSimaging. Please clarify the diagnosis(es) is most appropriate: [ x ] Non-ST elevation myocardial infarction [ ] ST elevation myocardial infarction involving LAD [ ] ST elevation myocardial infarction involving other coronary artery of anterior wall [ ] Other (please specify) [ ] Unable to determine (Template Last Revised: April 2020) MTDD
== END 2023-02-19 14:27 | disposition home or self-care (01) | DRG 322 ==
LOC: EC 17:51 → 3SCARD 18:34 → 2SICU 20:16 → 3SCARD 02-17 13:35
PROVIDERS: ADMIT Hospitalist; ATTEND Hospitalist
PROC: 027034Z Dilation of Coronary Artery, One Artery with Drug-eluting Intraluminal Device, Percutaneous Approach (ICD-10-PCS; principal; 2023-02-16 18:06)
PROC: 4A023N7 Measurement of Cardiac Sampling and Pressure, Left Heart, Percutaneous Approach (ICD-10-PCS; 2023-02-16 18:06)
PROC: B2111ZZ Fluoroscopy of Multiple Coronary Arteries using Low Osmolar Contrast (ICD-10-PCS; 2023-02-16 18:06)
PROC: B240ZZ3 Ultrasonography of Single Coronary Artery, Intravascular (ICD-10-PCS; 2023-02-16 18:06)
DX: I21.4 Non-ST elevation (NSTEMI) myocardial infarction (principal); I10 Essential (primary) hypertension; E78.5 Hyperlipidemia, unspecified; D72.828 Other elevated white blood cell count; I25.10 Atherosclerotic heart disease of native coronary artery without angina pectoris; Z79.899 Other long term (current) drug therapy; Z88.0 Allergy status to penicillin; Z88.6 Allergy status to analgesic agent; Z88.5 Allergy status to narcotic agent
CPT/HCPCS: 80048; 80061; 83036; 84443; 85025; 85730; 92921; 92978; 93306; 93458; 94760